=== PATIENT | female | born 1960 | race Caucasian/White ===

== ENCOUNTER 2019-04-14 19:35 | Emergency (ER) | payer MEDICAID ==
[~2019-04-14] VITALS: Ht 165.1 cm; Wt 78.9 kg
[2019-04-14 19:41] VITALS: BP 118/77
[2019-04-14] MEDS ORDERED: LIDOCAINE 5% 1 EA PATCH TP STA (19:59)
--- NOTE | 2019-04-14 21:10 | NUR ---
PT WAS CALLED BY STAFF, NO ANSWER IN LOBBY OR OUTSIDE LOBBY
--- NOTE | 2019-04-14 21:37 | NUR ---
PT WAS CALLED BY STAFF, NO ANSWER IN LOBBY OR OUTSIDE LOBBY
--- NOTE | 2019-04-14 22:00 | NUR ---
PT WAS CALLED, NO ANSWER IN ER LOBBY OR OUTSIDE OF LOBBY
== END 2019-04-14 21:10 | disposition left against medical advice (07) ==
LOC: MED 19:35
DX: R07.81 Pleurodynia (principal); R07.1 Chest pain on breathing; Z53.21 Procedure and treatment not carried out due to patient leaving prior to being seen by health care provider

== ENCOUNTER 2019-04-15 02:19 | Emergency (ER) | payer MEDICAID ==
[~2019-04-15] VITALS: Ht 165.1 cm; Wt 77.1 kg
[2019-04-15 02:26] VITALS: BP 118/76
--- NOTE | 2019-04-15 02:26 | NUR ---
PT AMBULATED TO BED 7
--- NOTE | 2019-04-15 02:39 | NUR ---
PT CAME TO ER C/O OF LEFT RIB PAIN AFTER S/P MECHANICAL FALL YESTERDAY. PER PT SHE FELL OVER A BRICK WALL. PAIN LEVEL 10/10 ACHING WITH MOVEMENT. NO REDNESS OR SWELLING TO LEFT RIB AREA NOTED. ALLERGY: PENICILLIN MED HX: DM. SAFETY MEASURES IN PLACE. WAITING FOR ERMD TO EVALUATE PT.
[2019-04-15] MEDS ORDERED: ACETAMINOPHEN EXTRA STRENGTH 500 MG TAB PO ONE (02:45)
--- NOTE | 2019-04-15 02:55 | NUR ---
PT REFUSED MEDICATION. ERMD MADE AWARE.
[2019-04-15] MEDS ORDERED: LIDOCAINE 5% 1 EA PATCH TP STA (03:02)
--- NOTE | 2019-04-15 03:18 | NUR ---
Papo salazar in [facility] - 04/15/19 at 0327 by BRIAN SPOKE TO RN. [place] LET HIM KNOW ETA IS 30 MIN
--- NOTE | 2019-04-15 03:20 | NUR ---
LIDODERM PATCH UNAVAILABLE. ERMD NOTIFIED.
[2019-04-15 04:01] VITALS: BP 135/74
--- NOTE | 2019-04-15 04:01 | NUR ---
Patient discharged with v/s stable. Written and verbal after care instructions given and explained. Patient alert, oriented and verbalized understanding of instructions. Ambulatory with steady gait. All questions addressed prior to discharge. ID band removed. Patient advised to follow up with PMD. Rx of LIDOCAINE WAS given. Patient educated on indication of medication including possible reaction and side effects. Opportunity to ask questions provided and answered.
== END 2019-04-15 04:00 | disposition home or self-care (01) ==
LOC: MED 02:19
DX: S20.20XA Contusion of thorax, unspecified, initial encounter (principal); E11.9 Type 2 diabetes mellitus without complications; Z88.0 Allergy status to penicillin; W19.XXXA Unspecified fall, initial encounter; Y93.89 Activity, other specified; Y92.89 Other specified places as the place of occurrence of the external cause; Y99.8 Other external cause status
CPT/HCPCS: 71101; 99283